=== PATIENT | male | born 1975 | race Caucasian/White ===

== ENCOUNTER 2022-10-08 14:51 | Emergency (ER) | payer MEDICAID ==
[~2022-10-08] VITALS: Ht 177.8 cm; Wt 106.6 kg
--- NOTE | 2022-10-08 15:10 | NUR ---
Pt seen by for bairon tobias. Safety measures in place. Will continue to monitor.
[2022-10-08] MEDS ORDERED: CEphaleXIN 500 MG CAPSULE PO ONE (15:15)
[2022-10-08] MEDS ORDERED: TDAP DIPH,PERTUSS,TET VAC/PF 0.5 ML DISP.SYRIN IM ONE ×2 (15:15→15:25)
[2022-10-08] MEDS ORDERED: LIDOCAINE HCL 1% 20 ML VIAL TP ONE (15:15)
[2022-10-08] MEDS ORDERED: LIDOCAINE HCL 1% 20 ML VIAL ONE (15:25)
[2022-10-08] MEDS ORDERED: CEphaleXIN 500 MG CAPSULE ONE (15:25)
[2022-10-08] MEDS ORDERED: BACITRACIN ZINC OINT 15 GM TUBE ONE (15:56)
[2022-10-08] MEDS ORDERED: CEPH500T PO (15:59)
[2022-10-08 16:16] VITALS: BP 122/83
--- NOTE | 2022-10-08 16:16 | NUR ---
Patient discharged to home in stable condition. Written and verbal after care instructions given. Patient verbalizes understanding of instructions. Stressed follow up or return to ER for worsening s/s.
== END 2022-10-08 16:17 | disposition home or self-care (01) ==
LOC: ER 14:51
DX: S71.112A Laceration without foreign body, left thigh, initial encounter (principal); E78.5 Hyperlipidemia, unspecified; Z79.899 Other long term (current) drug therapy; W26.8XXA Contact with other sharp object(s), not elsewhere classified, initial encounter; Y93.89 Activity, other specified; Y92.89 Other specified places as the place of occurrence of the external cause; Y99.8 Other external cause status
CPT/HCPCS: 99283; 90715; 90471; 12002; J3490; A4663

== ENCOUNTER 2022-10-20 13:37 | Emergency (ER) | payer MEDICAID ==
[~2022-10-20] VITALS: Ht 177.8 cm; Wt 105.7 kg
[~2022-10-20 13:37] MED LIST: CEPH500T PO
--- NOTE | 2022-10-20 13:49 | NUR ---
PT IS IN ROOM #5B. DR CARDONA EVALUATED THE PT.
--- NOTE | 2022-10-20 14:12 | NUR ---
PT WAS D/C'd TO HOME. D/C INSTRUCTIONS GIVEN TO THE PT BY DR CARDONA.
[2022-10-20 14:14] VITALS: BP 139/74
== END 2022-10-20 14:27 | disposition home or self-care (01) ==
LOC: ER 13:37
DX: S71.112D Laceration without foreign body, left thigh, subsequent encounter (principal); E78.5 Hyperlipidemia, unspecified; Z79.899 Other long term (current) drug therapy; W26.8XXD Contact with other sharp object(s), not elsewhere classified, subsequent encounter
CPT/HCPCS: A4663

== ENCOUNTER 2024-12-15 18:23 | Emergency (ER) | payer MEDICAID ==
[~2024-12-15] VITALS: Ht 177.8 cm; Wt 108.9 kg
[2024-12-15] MEDS ORDERED: TDAP DIPH,PERTUSS,TET VAC/PF 0.5 ML DISP.SYRIN IM ONE (20:02)
[2024-12-15] MEDS ORDERED: AMOXICILLIN-CLAVUL 875-125MG TABLET ONE (20:02)
[2024-12-15] MEDS: AMOXICILLIN-CLAVUL 875-125MG TABLET PO ONE (20:15)
[2024-12-15] MEDS: TDAP DIPH,PERTUSS,TET VAC/PF 0.5 ML DISP.SYRIN IM ONE (20:16)
[2024-12-15] MEDS ORDERED: AMOX-430 PO (20:43)
[2024-12-15 20:50] VITALS: BP 115/72; O2SAT 98
== END 2024-12-15 20:50 | disposition home or self-care (01) ==
LOC: ER 18:23
DX: S61.215A Laceration without foreign body of left ring finger without damage to nail, initial encounter (principal); L03.012 Cellulitis of left finger; E78.5 Hyperlipidemia, unspecified; Z60.2 Problems related to living alone; W54.0XXA Bitten by dog, initial encounter; Y93.89 Activity, other specified; Y92.89 Other specified places as the place of occurrence of the external cause; Y99.8 Other external cause status
CPT/HCPCS: 90715; A4606; A4663